=== PATIENT | female | born 1955 | race Caucasian/White ===

== ENCOUNTER 2022-11-10 18:30 | Emergency (ER) | payer MEDICARE, SELFPAY ==
--- NOTE | ~2022-11-10 | XR_ITS ---
EXAMINATION: XR wrist RT 2V INDICATION: Right wrist pain, initial encounter TECHNIQUE: Two views of the right wrist are obtained. COMPARISON: None available FINDINGS: There is an acute, traumatic, closed, comminuted, transverse fracture of the distal radius with a fracture plane extending to the distal articular surface. There are 30 degrees of dorsal angul ation at the fracture site. There is an oblique fracture of the ulnar styloid. Soft tissue swelling s urrounds the fractures. No additional acute osseous findings are evident. 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 IMPRESSION: 1. Comminuted intra-articular fracture of the distal radius with angulation. 2. Oblique ulnar styloid fracture. Reviewed, dictated and finalized at location F. TERIA CLERK
--- NOTE | 2022-11-10 18:43 | ED.UPPEXIN ---
HPI - Extremity Injury (Upper) General Chief Complaint: Extremity Injury, Upper Stated Complaint: Right Hand Injury Source: patient, family and RN notes reviewed History of Present Illness HPI narrative: 67 yo F presents to urgent care with at side. Pt states she fell while hiking after slipping in the mud this afternoon. Pt describes FOOSH injury to the right wrist. Pt states she fell onto her right knee as well but most of her pain is in her wrist and hand. Pt denies any head injury, LOC, neck pain, hip pain, numbness, or any other injury. Pt presents with ice to her wrist and hand. Related Data Home Medications Medication Instructions Recorded Confirmed alendronate 70 mg tablet See Rx Instructions .Route .COMPLEX 11/10/22 11/10/22 amlodipine 5 mg tablet 5 mg PO DAILY 11/10/22 11/10/22 atorvastatin 10 mg tablet 10 mg PO DAILY 11/10/22 11/10/22 metoprolol succinate 100 mg 100 mg PO DAILY 11/10/22 11/10/22 tablet,extended release 24 hr telmisartan 40 mg tablet 40 mg PO DAILY 11/10/22 11/10/22 Allergies Allergy/AdvReac Type Severity Reaction Status Date / Time codeine Allergy Rash Verified 11/10/22 18:59 nickel Allergy Rash Verified 11/10/22 19:00 B/P MED ? AdvReac Unknown Uncoded 11/10/22 19:02 Review of Systems Review of Systems: CONSTITUTIONAL: Denies fever, chills, or sweats. EYES: Denies visual changes, redness, or discharge. ENT: Denies otalgia and sore throat CARDIOVASCULAR: Denies chest pain, palpitations, or edema. RESPIRATORY: Denies cough or dyspnea. GASTROINTESTINAL: Denies abdominal pain, nausea, vomiting, or diarrhea. GENITOURINARY: Denies dysuria or hematuria. SKIN: Denies rash or itching. MUSCULOSKELETAL: Right wrist pain and swelling NEUROLOGIC: Denies headache, numbness, or weakness. PMFSH Comments At the time of my signature, I reviewed and agree with the nursing past medical, surgical, social, and family history. There is no relevant family history pertinent to the patient complaint. Exam Narrative: GENERAL: This is a well-nourished, well-developed patient, in no apparent distress. HEAD: normocephalic, atraumatic. EYES: Sclera clear/white. Vision is grossly intact. EARS: External ears normal, auditory canals clear and without drainage, TMs normal without perforation. Hearing grossly intact. NOSE: External nose normal with no obvious nasal discharge, nares without redness, no rhinorrhea. THROAT: Mucous membranes moist, posterior pharynx clear. NECK: Neck supple, non-tender without lymphadenopathy, masses or thyromegaly. CARDIOVASCULAR: Regular rate and rhythm without murmurs, gallops, or rubs. RESPIRATORY: Clear to auscultation. Breath sounds equal bilaterally. No wheezes, rales, or rhonchi. GASTROINTESTINAL: Abdomen soft, non-tender, nondistended. Bowel sounds are active. No hepato-splenomegaly, or palpable masses. No guarding. SKIN: intact with no suspicious lesions or rash, good texture and turgor. 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 NEURO: awake, alert, and oriented to person, place and time. There were no obvious focal neurologic abnormalities. EXTREMITIES: Right wrist deformity and swelling noted. Pt has difficulty moving right fingers due to pain radiating to wrist and FA with movement. Course Course Level of Care: Express Care Visit Vital Signs Vital signs: Vital Signs Temperature 98.7 F 11/10/22 18:54 Pulse Rate 114 H 11/10/22 18:54 Respiratory Rate 16 11/10/22 18:54 Blood Pressure 148/99 H 11/10/22 18:54 Pulse Oximetry 98 11/10/22 18:54 Oxygen Delivery Room Air 11/10/22 18:54 Temperature 98.7 F 11/10/22 18:54 Pulse Rate 114 H 11/10/22 18:54 Respiratory Rate 16 11/10/22 18:54 Blood Pressure 148/99 H 11/10/22 18:54 Pulse Oximetry 98 11/10/22 18:54 Oxygen Delivery Room Air 11/10/22 18:54 MDM - Extremity Injury (Upper) MDM Narrative Medical decision making narrative: Discussed with pt the reasons for transfer
[2022-11-10 18:54] VITALS: BP 148/99; PULSE 114; RESP 16; TEMP 37.1; O2SAT 98
[2022-11-10] MEDS: KETOROLAC 30 MG/ML VIAL (*BKC) IM (19:19)
== END 2022-11-10 19:30 | disposition home or self-care (01) ==
PROVIDERS: Emergency Provider Nurse Practitioner Family; PCP Physician Assistant
DX: S52.571A Other intraarticular fracture of lower end of right radius, initial encounter for closed fracture (principal); S52.611A Displaced fracture of right ulna styloid process, initial encounter for closed fracture; W01.0XXA Fall on same level from slipping, tripping and stumbling without subsequent striking against object, initial encounter; Y93.01 Activity, walking, marching and hiking
CPT/HCPCS: 29125; 73100; 96372; 99214; A4565; G0463; J1885

== ENCOUNTER 2022-11-10 19:58 | Emergency (ER) | payer MEDICARE, SELFPAY ==
--- NOTE | ~2022-11-10 | XR_ITS ---
EXAMINATION: XR wrist RT min 3V DATE: 11/11/2022 01:27 INDICATION: Distal right radius fracture status post reduction. TECHNIQUE: 3 views of right wrist were obtained. COMPARISON: Right wrist radiographs 11/10/2022 FINDINGS: There is a comminuted fracture of distal radius with involvement of the distal articular mercado rface. The main distal fracture fragment demonstrates 5 mm dorsal displacement and dorsal angulation. There is 4 degrees dorsal tilt of the distal articular surface. There is a fracture of ulnar styloid . 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 Osteopenia is noted. Osteopenia is noted. IMPRESSION: 1. Comminuted fracture of distal radius with improvement in alignment. 2. Avulsion fracture of the ulnar styloid. Reviewed, dictated and finalized at location A. [place] TECHNICIAN
[2022-11-10 20:10] VITALS: BP 172/80; PULSE 97; RESP 16; TEMP 36.6; O2SAT 96
[2022-11-10 23:49] VITALS: BP 177/89; PULSE 92; RESP 17; O2SAT 98
[2022-11-11 00:47] VITALS: BP 143/99; PULSE 96; RESP 17; O2SAT 99
[2022-11-11] MEDS: ONDANSETRON INJ 4 MG/2 ML VIAL IV PUSH (00:47)
[2022-11-11] MEDS: fentaNYL CITRATE INJ (*CRX) 100 MCG/2 ML VIAL 25 MCG IV PUSH (00:47)
--- NOTE | 2022-11-11 01:02 | ED.UPPEXIN ---
HPI - Extremity Injury (Upper) General Chief Complaint: Extremity Injury, Upper Stated Complaint: RIGHT WRIST INJURY/ NEEDS REDUCTION Time Seen by Provider: 11/10/22 23:07 Source: patient and old records reviewed Mode of arrival: ambulatory Limitations: no limitations History of Present Illness HPI narrative: Patient is a 67-year-old female who presents to the ED with right wrist fracture. Patient was hiking today when she slipped on mud and fell onto her side with her right arm underneath of her. Her right wrist was bent backwards. Patient had significant pain to the right wrist after the fall. She was seen in a local urgent care where they diagnosed her with a radial fracture and ulnar styloid fracture. Patient was then sent here for reduction and splinting. Patient denies any numbness or tingling. No other injuries, head injury, LOC. Patient was able to ambulate after the fall. Patient placed in volar forearm splint, arm sling, and given Toradol prior to arrival. Related Data Home Medications Medication Instructions Recorded Confirmed alendronate 70 mg tablet See Rx Instructions .Route .COMPLEX 11/10/22 11/10/22 amlodipine 5 mg tablet 5 mg PO DAILY 11/10/22 11/10/22 atorvastatin 10 mg tablet 10 mg PO DAILY 11/10/22 11/10/22 metoprolol succinate 100 mg 100 mg PO DAILY 11/10/22 11/10/22 tablet,extended release 24 hr telmisartan 40 mg tablet 40 mg PO DAILY 11/10/22 11/10/22 Allergies Allergy/AdvReac Type Severity Reaction Status Date / Time codeine Allergy Rash Verified 11/10/22 18:59 nickel Allergy Rash Verified 11/10/22 19:00 B/P MED ? AdvReac Unknown Uncoded 11/10/22 19:02 Review of Systems Review of Systems: CONSTITUTIONAL: Denies fever, chills, or sweats. CARDIOVASCULAR: Denies chest pain. RESPIRATORY: Denies dyspnea. GASTROINTESTINAL: Denies abdominal pain, nausea, vomiting. MUSCULOSKELETAL: See HPI. NEUROLOGIC: See HPI. All systems reviewed & are unremarkable except as noted in HPI and below PMFSH Past Medical History Medical History (Updated 11/11/22 @ 06:35 by Nikia Doll PA-C) HTN (hypertension) Surgical History Surgical History (Updated 11/11/22 @ 06:35 by Nikia Doll PA-C) No pertinent past surgical history Social History Social History (Updated 11/11/22 @ 06:35 by Nikia Doll PA-C) Smoking status: Never smoker Exam Narrative: GENERAL: Well appearing, obese, non-toxic, in no acute distress. HEAD: Normocephalic, atraumatic. NECK: Supple. No adenopathy, no masses. RESPIRATORY: Airway patent, respirations nonlabored. Clear to auscultation bilaterally, no rales, rhonchi, wheezing. CARDIOVASCULAR: Regular rate and rhythm without murmurs, rubs, or gallops. Radial pulses 2+ and equal bilaterally. MUSCULOSKELETAL: Colles fracture deformity with swelling noted to R wrist. Able to move all fingers. Sensation intact. Good capillary refill. TTP over distal radius of R wrist. Less significant tenderness over ulnar styloid region. No TTP throughout R elbow/shoulder. No abrasions or wounds. SKIN: Warm, dry, normal color. No rashes. NEURO: A&O X3. Speech clear. Cranial nerves II-XII grossly intact. Steady gait. No ataxic movements. PSYCHIATRIC: Appropriate mood and affect. Normal interaction. Course Vital Signs Vital signs: Vital Signs Temperature 97.9 F 11/10/22 20:10 Pulse Rate 97 11/10/22 20:10 Respiratory Rate 16 11/10/22 20:10 Blood Pressure 172/80 H 11/10/22 20:10 Pulse Oximetry 96 11/10/22 20:10 Temperature 97.9 F 11/10/22 20:10 Pulse Rate 84 11/11/22 01:47 Respiratory Rate 18 11/11/22 01:47 Blood Pressure 141/70 H 11/11/22 01:47 Pulse Oximetry 95 11/11/22 01:47 Procedures Orthopedic Fracture Reduction Fracture #1: Fracture Reduction date: 11/11/22 Fracture Reduction time: 01:00 Time Out Performed: Yes Side: left Fracture Reduction Location: radius and ulna Analgesia
[2022-11-11 01:47] VITALS: BP 141/70; PULSE 84; RESP 18; O2SAT 95
== END 2022-11-11 01:56 | disposition home or self-care (01) ==
PROVIDERS: Emergency Provider Physician Assistant; PCP Physician Assistant
DX: S52.531A Colles' fracture of right radius, initial encounter for closed fracture (principal); S52.614A Nondisplaced fracture of right ulna styloid process, initial encounter for closed fracture; I10 Essential (primary) hypertension; W01.0XXA Fall on same level from slipping, tripping and stumbling without subsequent striking against object, initial encounter
CPT/HCPCS: 25605; 73100; 73110; 96372; 96374; 99285; A4565; J1885; J2405; J3010